=== PATIENT | female | born 1955 | race Caucasian/White ===

== ENCOUNTER 2022-09-22 17:28 | Emergency (ER) | payer OTHER, SELFPAY ==
[2022-09-22 17:44] VITALS: BP 131/83; PULSE 76; RESP 15; TEMP 36.8; O2SAT 100
--- NOTE | 2022-09-22 17:44 | ED.SKABFB ---
HPI - Skin/Abscess/Foreign Bdy General Chief complaint: Skin/Abscess/Foreign Body Stated complaint: Rash Time Seen by Provider: 09/22/22 17:54 Source: patient and RN notes reviewed Mode of arrival: ambulatory Limitations: no limitations History of Present Illness HPI narrative: 67-year-old female presents with concern for a rash to her right forearm. She reports her symptoms started on Monday with a small red bump to her arm, she scratched it and since has spread to the rest of her forearm. She reports it is itchy. She denies pain or tenderness. She denies general malaise, fever, body aches chills. Reports she has been using cortisone cream with little relief complaint: rash Related Data Home Medications Medication Instructions Recorded Confirmed atorvastatin 10 mg tablet 10 mg PO DAILY 09/22/22 09/22/22 levothyroxine 100 mcg tablet 100 mcg PO DAILY 09/22/22 09/22/22 pantoprazole 40 mg tablet,delayed 40 mg PO DAILY 09/22/22 09/22/22 release Allergies Allergy/AdvReac Type Severity Reaction Status Date / Time No Known Allergies Allergy Mild Verified 09/22/22 17:51 Review of Systems Review of Systems: CONSTITUTIONAL: Denies malaise, chills, sweats, or fever. EYES: Denies redness, or discharge. ENT: Denies rhinorrhea, congestion, swollen lips, swollen tongue CARDIOVASCULAR: Denies chest pain, palpitations, or edema. RESPIRATORY: Denies cough or dyspnea. GASTROINTESTINAL: Denies abdominal pain, nausea, vomiting SKIN: Reports rash on her right forearm MUSCULOSKELETAL: Denies joint pain or myalgia. NEUROLOGIC: Denies headache. All systems reviewed & are unremarkable except as noted in HPI and below PMFSH Comments At time of signature, agree with nursing past medical, surgical, social and family history. There is no relevant family history pertinent to the presenting complaint Exam Narrative: GENERAL: Well-appearing, well-nourished, and in no acute distress. HEAD: Normocephalic, atraumatic. EYES: PERRLA, conjunctivae clear, and EOMI. ENT: Mucous membranes moist. Oropharynx without edema, erythema or lesions. NECK: Supple. No lymphadenopathy CHEST: Clear to auscultation. No respiratory distress. HEART: Regular rate and rhythm. SKIN: Warm, dry. Raised confluent Patches of erythema noted to the right forearm with 1 scabbed papule, satellite lesions noted NEURO: Alert and oriented x3. PSYCH: Normal mood and affect Course Course Emergency Course: Patient is aware of diagnosis, understands and agrees to treatment plan. Anticipatory guidance given. Patient agrees to follow-up as directed and is aware of reasons to seek care at the emergency department. Portions of this record may have been created with voice recognition software Level of Care: Express Care Visit Vital Signs Vital signs: Vital Signs Temperature 98.3 F 09/22/22 17:44 Pulse Rate 76 09/22/22 17:44 Respiratory Rate 15 09/22/22 17:44 Blood Pressure 131/83 09/22/22 17:44 Pulse Oximetry 100 09/22/22 17:44 Oxygen Delivery Room Air 09/22/22 17:44 Temperature 98.3 F 09/22/22 17:44 Pulse Rate 76 09/22/22 17:44 Respiratory Rate 15 09/22/22 17:44 Blood Pressure 131/83 09/22/22 17:44 Pulse Oximetry 100 09/22/22 17:44 Oxygen Delivery Room Air 09/22/22 17:44 Reviewed. MDM - Skin/Abscess/Foreign Bdy MDM Narrative Medical decision making narrative: Does not appear at this time to be erythema multiforme, bullous, SJS, TEN; no evidence at this time to suggest RMSF, endocarditis or Lyme disease; patient looks well, nontoxic and is tolerating oral intake; no neurologic signs or symptoms; no headache, photophobia or neck pain; afebrile; appropriate for initial outpatient treatment; discussed the importance of follow-up, patient agrees; question, viral exanthema, contact dermatitis, allergic dermatitis, eczema, urticaria, cellulitis. No soft palate or uvula edema, no tongue, lip edema or other mucosal involvement, n
== END 2022-09-22 17:55 | disposition home or self-care (01) ==
PROVIDERS: Emergency Provider Nurse Practitioner; PCP Internal Medicine
DX: L30.9 Dermatitis, unspecified (principal); E78.00 Pure hypercholesterolemia, unspecified; K21.9 Gastro-esophageal reflux disease without esophagitis; E03.9 Hypothyroidism, unspecified
CPT/HCPCS: 99213; G0463

== ENCOUNTER 2024-11-27 18:15 | Emergency (ER) | payer OTHER, SELFPAY ==
[2024-11-27 18:21] VITALS: BP 135/80; PULSE 72; RESP 16; TEMP 36.1; O2SAT 96
--- NOTE | 2024-11-27 18:28 | ED.URI ---
HPI - URI/Sore Throat General Chief Complaint: Upper Respiratory Infection Stated Complaint: Congestion/Sore Throat/Chest Congestion Time Seen by Provider: 11/27/24 18:28 Source: patient and RN notes reviewed Mode of arrival: ambulatory Limitations: no limitations History of Present Illness HPI Narrative: 69-year-old female presented for complaint of nasal drainage and sinus pressure for over 1 week. Reports mucous is now green in color. Denies shortness of breath, wheezing nausea vomiting diarrhea, fevers or chills. She is taking NyQuil and cough cold med. MD elicited complaint: cough Related Data Home Medications ?Medication ?Instructions ?Recorded ?Confirmed ?Last Taken ?Type atorvastatin 10 mg tablet 10 mg PO DAILY 09/22/22 09/22/22 Unknown History levothyroxine 100 mcg tablet 100 mcg PO DAILY 09/22/22 09/22/22 Unknown History metoprolol succinate 25 mg 25 mg PO DAILY 11/27/24 Unknown History tablet,extended release 24 hr omeprazole 20 mg capsule,delayed 20 mg PO DAILY 11/27/24 Unknown History release rivaroxaban 20 mg tablet (Xarelto) 20 mg PO DAILY 11/27/24 Unknown History Allergies Allergy/AdvReac Type Severity Reaction Status Date / Time No Known Allergies Allergy Mild Verified 11/27/24 18:31 Review of Systems Review of Systems: CONSTITUTIONAL:denies malaise, chills, sweats, fever EYES: Denies visual changes, redness, or discharge ENT: Reports rhinorrhea, congestion, sinus pain, denies otalgia, sore throat CARDIOVASCULAR: Denies chest pain, palpitations, edema RESPIRATORY: Reports cough, Denies dyspnea GASTROINTESTINAL: Denies abdominal pain, nausea, vomiting, diarrhea SKIN: Denies rash or itching Exam Narrative: GENERAL: well-appearing, nontoxic no acute distress. EYES: PERRLA, conjunctivae clear ENT: Mucous membranes moist. TMs pearly felton with dull light reflex bilaterally; no tragal tenderness. Oropharynx erythematous without lesions or exudate, no drooling, no hoarseness, no trismus, uvula midline. No tripod positioning, muffled voice, soft palate or pharyngeal wall bulging NECK: Supple. No lymphadenopathy CHEST: Clear to auscultation, breath sounds equal. HEART: Regular rate and rhythm. No murmur heard. SKIN: Warm, dry, no rash. NEURO: Alert and oriented x3. PSYCH: Normal mood and affect Course Course Emergency Course: Patient is aware of diagnosis, understands and agrees to treatment plan. Anticipatory guidance given. Patient agrees to follow-up as directed and is aware of reasons to seek care at the emergency department. Portions of this record may have been created with voice recognition software Level of Care: Express Care Visit Vital Signs Vital signs: Vital Signs Temperature 97 F L 11/27/24 18:21 Pulse Rate 72 11/27/24 18:21 Respiratory Rate 16 11/27/24 18:21 Blood Pressure 135/80 11/27/24 18:21 Pulse Oximetry 96 11/27/24 18:21 Oxygen Delivery Room Air 11/27/24 18:21 Temperature 97 F L 11/27/24 18:21 Pulse Rate 72 11/27/24 18:21 Respiratory Rate 16 11/27/24 18:21 Blood Pressure 135/80 11/27/24 18:21 Pulse Oximetry 96 11/27/24 18:21 Oxygen Delivery Room Air 11/27/24 18:21 reviewed MDM - URI/Sore Throat MDM Narrative Medical decision making narrative: Discussed physical exam findings. Advised supportive measures and signs/symptoms to go to the ER. Pt is appropriate for outpt treatment and f/u. Differential Diagnosis Differential diagnosis: Likely upper respiratory infection, sinusitis and viral infection Discharge Plan Discharge Clinical Impression: Sinusitis Patient Disposition: Home, Self-Care Condition: Stable Instructions: Antibiotic Form, Rhinosinusitis (ED) Additional Instructions: take antibiotic as directed Recommendations: Flonase spray and Zyrtec (or Claritin/Apoorva) over the counter Cough syrup may cause drowsiness; avoid driving or take it at night time. Tylenol 1000mg every 8 hours as needed for pain Symptomatic treatment includes: rest, fluids, and increase humidity of the air at home. Follow up with your primary care provider in 1 week. Go to the ER for worsening symptoms or concerns. Patient Language: Indonesian Prescriptions: New amoxicillin-pot clavulanate 875-125 mg tablet 1 tablet PO Q12H 7 Days Qty: 14 0RF No Action atorvastatin 10 mg tablet 10 mg PO DAILY levothyroxine 100 mcg tablet 100 mcg PO DAILY Xarelto 20 mg tablet 20 mg PO DAILY omeprazole 20 mg capsule,delayed release(DR/EC) 20 mg PO DAILY metoprolol succinate 25 mg tablet extended release 24 hr 25 mg PO DAILY Follow-up/Referrals: Mehran,Lenny Lozano MD [Primary Care Provider] - Time of Disposition: 18:35
== END 2024-11-27 18:38 | disposition home or self-care (01) ==
PROVIDERS: Emergency Provider Nurse Practitioner Family; PCP Internal Medicine
DX: J32.9 Chronic sinusitis, unspecified (principal); Z79.01 Long term (current) use of anticoagulants; Z79.899 Other long term (current) drug therapy
CPT/HCPCS: 99213; G0463